=== PATIENT | female | born 2000 | race Two or more races ===

== ENCOUNTER 2021-03-27 09:39 | Emergency (ER) | payer MEDICAID ==
[~2021-03-27] VITALS: Ht 154.9 cm; Wt 95.3 kg
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
--- NOTE | 2021-03-27 09:59 | NUR ---
TO ER BED 1 FOR EVAL
[2021-03-27] MEDS ORDERED: CYCL5TAB PO (14:09)
[2021-03-27] MEDS ORDERED: IBUP-1955 PO (14:09)
[2021-03-27] MEDS ORDERED: KETOROLAC TROMETHAMINE 15 MG/ML VIAL ONE (14:16)
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
[2021-03-27 14:24] VITALS: BP 123/71
--- NOTE | 2021-03-27 14:24 | NUR ---
Patient discharged to home in stable condition. Written and verbal after care instructions given. Patient verbalizes understanding of instruction.
[2021-03-27] MEDS ORDERED: KETOROLAC TROMETHAMINE INJ 60 MG/2 ML VIAL IM ONE (14:30)
== END 2021-03-27 14:25 | disposition home or self-care (01) ==
LOC: ER 09:43
DX: S40.212A Abrasion of left shoulder, initial encounter (principal); M79.602 Pain in left arm; M25.562 Pain in left knee; V49.49XA Driver injured in collision with other motor vehicles in traffic accident, initial encounter; Y93.89 Activity, other specified; Y92.410 Unspecified street and highway as the place of occurrence of the external cause; Y99.8 Other external cause status
CPT/HCPCS: 71045; 73090; 73564; 96372; 99284; J1885